=== PATIENT | female | born 1965 | race Caucasian/White ===

== ENCOUNTER 2020-10-18 09:25 | Outpatient (CLI) | payer OTHER, SELFPAY ==
--- NOTE | 2020-10-18 09:58 | CT_ITS ---
WS: [id number] CT ABDOMEN AND PELVIS NONCONTRAST HISTORY: LEFT LOWER QUADRANT PAIN TECHNIQUE: Imaging performed through the abdomen and pelvis. Coronal and sagittal reformats are submi tted. All CT scans at [facility] use at least one of these dose optimization techniques: automated exposure control; mA and/or kV adjustment per patient size (includes targeted exams where d ose is matched to clinical indication); or iterative reconstruction. DLP: 1051.12 mGycm COMPARISON: 02/19/2018 Lower thorax: Lung bases are clear. Visualized heart is normal. No hiatal hernia. Liver: Normal size liver. No mass or bile duct dilatation. Gallbladder: Normal gallbladder. Pancreas: Normal size and attenuation. Normal pancreatic duct. No pancreatitis or mass. Spleen: Normal. Adrenal glands: Normal. No mass. Right kidney: Normal size kidney with no mass or hydronephrosis. Left kidney: Normal size kidney with no mass or hydronephrosis. Aorta: Mild atherosclerosis abdominal aorta with no aneurysm. No free fluid, intraperitoneal air or significant lymphadenopathy. GI tract: Normal appendix. No GI tract obstruction. No mucosal thickening or pericolonic edema. No di verticular disease. There is a very featureless appearance of the descending and sigmoid colon. Lack of the normal haustral folds. The lumen appears slightly narrowed. Rectum is normal. Abdominal wall: Negative. No hernia. Pelvis: Normal. Osseous structures: L5 anterolisthesis by 4 mm. Facet joint arthritis at L4-5 and L5-S1. Marked scler osis involving the RIGHT ilium and SI joint. There is very mild widening of the RIGHT facet joint. CT/CT abdomen pelvis wo con [id number] IMPRESSION: 1. Featureless appearance of the descending and sigmoid colon. These findings can be noted with inflammatory bowel disease such as ulcerative colitis. 2. Additional RIGHT sacroiliitis. Sacroiliitis can also be seen with inflammat ory bowel disease such as Crohn's disease or ulcerative colitis. 3. Mild atherosclerosis aorta.
[2020-10-18] MEDS: iohexol 300 mg/mL 50 mL Btl PO (10:33)
== END 2020-10-18 09:26 | disposition home or self-care (01) ==
LOC: RADWPI 09:28
PROVIDERS: PCP Nurse Practitioner Family; Visit Provider Nurse Practitioner Family
DX: R10.32 Left lower quadrant pain (principal); I70.0 Atherosclerosis of aorta; M46.1 Sacroiliitis, not elsewhere classified
CPT/HCPCS: 74176; Q9967

== ENCOUNTER 2020-11-12 11:39 | Outpatient (CLI) | payer OTHER, SELFPAY ==
[2020-11-12 12:29] LABS: Basophils % 0.4 %; Eosinophils # 0.1 10^3/uL (0.0-0.8); Eosinophils % 1.6 %; Hematocrit 38.5 % (37.0-47.0); Hemoglobin 12.5 g/dL (11.5-15.3); Lymphocytes # 2.7 10^3/uL (0.8-4.8); Lymphocytes % 30.1 %; Mean Corpuscular HGB Conc 32.5 g/dL (30.0-36.0); Mean Corpuscular Hemoglobin 30.5 pg (28.0-34.0); Mean Corpuscular Volume 93.9 fL (81-99); Mean Platelet Volume 9.5 fL (7.4-10.4); Monocytes # 0.7 10^3/uL (0.2-0.9); Monocytes % 7.6 %; Neutrophils # 5.31 10^3/uL (1.8-7.7); Neutrophils % 59.9 %; Nucleated Red Blood Cells % 0 %; Platelet Count 326 10^3/cmm (130-400); Red Cell Distribution Width 13.1 % (12.1-15.1); White Blood Count 8.9 10^3/uL (4.0-10.0)
[2020-11-12 12:56] LABS: Alanine Aminotransferase 8 U/L (0-33); Alkaline Phosphatase 79 IU/L (35-105); Anion Gap 13.6 (5-19); Aspartate Amino Transferase 11 U/L (0-32); Blood Urea Nitrogen 12 mg/dL (6-20); C Reactive Protein 8.7 mg/L (0.0-4.9); Calcium 9.1 mg/dL (8.5-10.5); Carbon Dioxide 27 mmol/L (22-29); Chloride 104 mmol/L (98-107); Glomerular Filtration Rate 103.8 mL/min (90-130); Glucose 107 mg/dL (65-115); Osmolality Calculated 292 mOsm/kg (285-295); Potassium 3.6 mmol/L (3.5-5.1); Sodium 141 mmol/L (136-145); Thyroid Stimulating Hormone 2.43 uIU/mL (0.27-4.20); Total Bilirubin 0.3 mg/dL (0.15-1.2)
[2020-11-12 13:15] LABS: Erythrocyte Sedimentation Rate 35 mm/hr (0-15)
== END 2020-11-12 11:40 | disposition home or self-care (01) ==
PROVIDERS: PCP Nurse Practitioner Family; Visit Provider Surgery
DX: K57.92 Diverticulitis of intestine, part unspecified, without perforation or abscess without bleeding (principal)
CPT/HCPCS: 36415; 80053; 84443; 85025; 85651; 86140

== ENCOUNTER → 2020-11-16 08:45 | Outpatient (BNVA) | payer OTHER, SELFPAY | PROVIDERS: PCP Nurse Practitioner Family; Visit Provider Surgery | DX: K52.9 Noninfective gastroenteritis and colitis, unspecified (principal) | CPT/HCPCS: 87635 ==

== ENCOUNTER 2020-11-21 06:20 | Day surgery (SDC) | payer OTHER, SELFPAY ==
[2020-11-20 13:27] VITALS: BMI 33.6
--- NOTE | 2020-11-21 06:31 | ANES.PREANE2 ---
Pre-Anesthetic Assessment Pre-Anesthetic Assessment: Height/Weight: Height 1.55 m Weight 80.739 kg Preop Diagnosis: Colitis Proposed Procedure: Operation Date: 11/21/20 07:45 Proposed Procedures p Colonoscopy 46140 k52.9(Not Applicable) - Avery Lora MD Familial anesthetic complications: none Was Beta Richelle taken within 24 hours: N/A Was Clonidine taken within 24 hours: N/A Last intake: > 8 hrs Social: Social History: No alcohol and No tobacco Exam: Pre-Anes Outpt Exam: alert, oriented x 3, clear to auscultation bilaterally and regular rate & rhythm Airway: Cervical ROM: WNL MP: 4 Dentition: False Metabolic: Metabolic: Thyroid Anesthetic Plan: ASA status: 2 Anesthesia: MAC Risk of > 500 ml blood loss (7ml/kg in children): No PFSH Anesthesia PFSH: Medical History Anxiety Diverticulitis Hx of colonic polyp benign Hypothyroid Surgical History H/O hernia repair umbilical/abdominal--- several repairs H/O prior ablation treatment (~2007) endometrial--- did not work History of hysterectomy (~2007) TVH,anterior repair performed at [facility] [place]-- Andres Peters Hx of appendectomy Hx of ectopic (~1988) required removal Hx of rotator cuff surgery (~12/2019) left Family History Mother Diabetes Hypertension Thyroid disease Father Diabetes Heart disease Stroke Grandfather Breast cancer Maternal Denies family history of Colon cancer Ovarian cancer Hypercholesteremia Bleeding disorder Uterine cancer Social History Additional social history: - Tobacco use: current everyday smoker-- smokes 10 cigarettes per day Alcohol use: Occasional/socially Drug use: Marijuana-- quit in 's Data Anesthesia Cardiac Studies: No Data to Display
[2020-11-21 06:47] VITALS: BP 137/98; PULSE 81; RESP 18; TEMP 36.9; O2SAT 96
[2020-11-21] MEDS: sodium chloride 0.9% 1,000 ML 30 ML IV (07:07)
--- NOTE | 2020-11-21 07:13 | W.PM.OPSUD ---
Surgery/Procedure H&P Update DATE OF PROCEDURE: November 21, 2020 DATE H&P PERFORMED: 11/01/20 H&P UPDATE INFORMATION: I have reviewed H&P completed within last 30 days, I have examined patient prior to procedure and No changes to prior documentation PREOP DIAGNOSIS: Colitis PRIMARY INDICATION FOR PROCEDURE: The same PLANNED PROCEDURE: Operation Date: 11/21/20 07:45 Proposed Procedures p Colonoscopy 83622 k52.9(Not Applicable) - Avery Lora MD
[2020-11-21 09:11] VITALS: BP 121/80; PULSE 74; TEMP 36.7; O2SAT 99
--- NOTE | 2020-11-21 09:15 | ANE.PACU2 ---
Inpatient post-anesthesia follow up: Airway intact: Yes Vital signs: Temperature 98.1 F Pulse Rate 74 Respiratory Rate 18 Blood Pressure 121/80 Pulse Oximetry 99 Oxygen Delivery Me thod Room Air Oxygen Flow Rate Fraction of Inspir ed Oxygen Hydration adequate: Yes Nausea and vomiting: No Pain level: 1 Mental status: Baseline
== END 2020-11-21 09:36 | disposition home or self-care (01) ==
PROVIDERS: PCP Nurse Practitioner Family; Visit Provider Surgery
PROC: 0DJD8ZZ Inspection of Lower Intestinal Tract, Via Natural or Artificial Opening Endoscopic (ICD-10-PCS; CPT 45378; principal; 2020-11-21 07:45)
DX: K52.9 Noninfective gastroenteritis and colitis, unspecified (principal); D12.8 Benign neoplasm of rectum; E03.9 Hypothyroidism, unspecified; F17.210 Nicotine dependence, cigarettes, uncomplicated
CPT/HCPCS: 45380; 88305; 96360; 96361; J2704; J7030

== ENCOUNTER 2020-11-28 10:37 | Outpatient (CLI) | payer OTHER, SELFPAY ==
--- NOTE | 2020-11-28 10:42 | MM_ITS ---
WS: [id number] BILATERAL SCREENING DIGITAL MAMMOGRAM WITH CAD HISTORY: SCREENING COMPARISON: 07/24/2016 07/16/2016 Bilateral CC and MLO views submitted. Computer aided detection analyzed. Breast composition: There are scattered areas of fibroglandular density. No suspicious masses, microc alcifications or architectural distortion. Benign calcifications in each breast. Stable bilateral kiersten ast nodules. MM/[place] [id number] IMPRESSION: BI-RADS: 2-Benign FOLLOW UP: 1 Year Follow-up
== END 2020-11-28 10:38 | disposition home or self-care (01) ==
LOC: RADSHAW 10:40
PROVIDERS: PCP Nurse Practitioner Family; Visit Provider Nurse Practitioner Family
DX: Z12.31 Encounter for screening mammogram for malignant neoplasm of breast (principal)
CPT/HCPCS: 77067

== ENCOUNTER 2021-08-12 13:27 | Outpatient (CLI) | payer OTHER, SELFPAY ==
--- NOTE | 2021-08-12 13:35 | MM_ITS ---
WS: [id number] LEFT DIGITAL MAMMOGRAPHY WITH CAD CLINICAL INFORMATION: NIPPLE DISCHARGE COMPARISON: November 28, 2020 TECHNIQUE: 5 views of the left breast were obtained. FINDINGS: Scattered fibroglandular densities of the left breast. Punctate and lucent centered calcifications. S pot compression views at the areola. No definite visualized parenchymal abnormalities about the areol a. Ultrasound is pending. ULTRASOUND BREAST LEFT TECHNIQUE: Ultrasound left breast focused area of concern. CLINICAL INFORMATION: NIPPLE DISCHARGE FINDINGS: Ultrasound left breast about the areola. No evidence of underlying suspicious cystic or solid lesions . Incidental ductal ectasia. No visualized intraductal lesion. Findings have a benign appearance. MM/[place] [id number] IMPRESSION: BI-RADS: 2-Benign FOLLOW UP: 1 Year Follow-up Recommend return to annual screening mammography.
== END 2021-08-12 13:28 | disposition home or self-care (01) ==
LOC: RADSHAW 13:33
PROVIDERS: PCP Nurse Practitioner Family; Visit Provider Nurse Practitioner
DX: N64.52 Nipple discharge (principal)
CPT/HCPCS: 76642; 77065

== ENCOUNTER 2022-10-07 08:31 | Outpatient (CLI) | payer OTHER, SELFPAY ==
--- NOTE | 2022-10-07 08:45 | MR_ITS ---
WS: [id number] MRI LUMBAR SPINE NONCONTRAST TECHNIQUE: Sagittal T1, T2 and STIR imaging. Axial T1 and T2 imaging. CLINICAL INFORMATION: M48.062 - Spinal stenosis, lumbar region with neurogenic ... COMPARISON: CT and MRI 2013 FINDINGS: Mild lumbar curve. No acute compression. Grade 1 anterolisthesis L5 on S1 appears unchanged since 201 4. Disc space narrowing worse L5-S1 appears slightly progressed. L1-L2: Mild facet arthropathy. Spinal canal and foramen are patent. L2-L3: Minimal annular bulging. Slight narrowing of the RIGHT subarticular recess. Mild facet arthrop athy. Spinal canal and foramen are patent. L3-L4: Mild annular bulging with slight narrowing of the LEFT subarticular recess. Mild facet arthrop athy. Spinal canal and foramen are patent. L4-L5: Mild annular bulging with moderate central canal stenosis. Moderate facet arthropathy with lig amentum flavum hypertrophy. Slight impingement traversing L5 nerve roots. Mild LEFT and no significan t RIGHT foraminal narrowing. L5-S1: Grade 1 anterolisthesis L5 on S1 appears unchanged. Mild disc bulging in combination with face t arthropathy ligamentum flavum hypertrophy results in severe central canal stenosis unchanged. Impin gement on traversing S1 nerve roots. Severe LEFT and mild RIGHT foraminal narrowing. Chronic appearing sclerosis RIGHT sacrum and sacroiliac joint partially visualized. Visualized pelvic bony structures: Normal. Paravertebral soft tissues: Normal. MR/MR lumbar spine wo con* [id number] IMPRESSION: 1. Grade 1 anterolisthesis L5 on S1 measuring 6 mm appears unchanged since 201 4. Disc space narrowing L5-S1 has progressed slightly. 2. Moderate to severe central canal stenosis L5-S1 appears unchanged. This is due to grade 1 anterolisthesis in combination with disc bulging and facet arthr opathy. 3. Moderate to severe LEFT L5-S1 foraminal stenosis appears progressed. 4. Moderate central canal stenosis L4-L5 impinges the traversing RIGHT greater than LEFT L5 nerve roots. This appears slightly progressed. 5. Moderate facet arthropathy L4-L5 and L5-S1. Small amount of edema in the L4 -L5 and L5-S1 pedicles and facets.
== END 2022-10-07 08:32 | disposition home or self-care (01) ==
PROVIDERS: PCP Nurse Practitioner Family; Visit Provider Anesthesiology Pain Medicine
DX: M48.062 Spinal stenosis, lumbar region with neurogenic claudication (principal); M47.816 Spondylosis without myelopathy or radiculopathy, lumbar region; M47.817 Spondylosis without myelopathy or radiculopathy, lumbosacral region; M48.07 Spinal stenosis, lumbosacral region
CPT/HCPCS: 72148

== ENCOUNTER → 2022-10-22 09:59 | Outpatient (BNVA) | payer MEDICARE, OTHER, SELFPAY | PROVIDERS: PCP Nurse Practitioner Family; Visit Provider Anesthesiology Pain Medicine | DX: M51.16 Intervertebral disc disorders with radiculopathy, lumbar region (principal); M47.816 Spondylosis without myelopathy or radiculopathy, lumbar region | CPT/HCPCS: 99215 ==

== ENCOUNTER → 2022-11-11 14:49 | Outpatient (BNVA) | payer MEDICARE, OTHER, SELFPAY | PROVIDERS: PCP Nurse Practitioner Family; Visit Provider Anesthesiology Pain Medicine | DX: M54.16 Radiculopathy, lumbar region (principal) | CPT/HCPCS: 64483; 64484; J1100; J3490 ==

== ENCOUNTER → 2022-11-27 09:31 | Outpatient (BNVA) | payer MEDICARE, OTHER, SELFPAY | PROVIDERS: PCP Nurse Practitioner Family; Visit Provider Anesthesiology Pain Medicine | DX: M51.16 Intervertebral disc disorders with radiculopathy, lumbar region (principal); M47.816 Spondylosis without myelopathy or radiculopathy, lumbar region | CPT/HCPCS: 99215 ==

== ENCOUNTER → 2022-12-10 13:15 | Outpatient (BNVA) | payer MEDICARE, OTHER, SELFPAY | PROVIDERS: PCP Nurse Practitioner Family; Visit Provider Anesthesiology Pain Medicine | DX: M47.816 Spondylosis without myelopathy or radiculopathy, lumbar region (principal) | CPT/HCPCS: 64493; 64494; 64495; J3490 ==

== ENCOUNTER → 2022-12-24 13:23 | Outpatient (BNVA) | payer MEDICARE, OTHER, SELFPAY | PROVIDERS: PCP Nurse Practitioner Family; Visit Provider Anesthesiology Pain Medicine | DX: M47.816 Spondylosis without myelopathy or radiculopathy, lumbar region (principal) | CPT/HCPCS: 64493; 64494; 64495; J3490 ==

== ENCOUNTER → 2023-01-14 09:15 | Outpatient (BNVA) | payer MEDICARE, OTHER, SELFPAY | PROVIDERS: PCP Nurse Practitioner Family; Visit Provider Anesthesiology Pain Medicine | DX: M51.16 Intervertebral disc disorders with radiculopathy, lumbar region (principal); M47.816 Spondylosis without myelopathy or radiculopathy, lumbar region | CPT/HCPCS: 99214 ==

== ENCOUNTER 2023-01-21 08:59 | Outpatient (CLI) | payer MEDICARE, OTHER, SELFPAY ==
--- NOTE | 2023-01-21 09:10 | FL_ITS ---
WS: [id number] Exam: FL upper GI series [id number] Date/Time of Exam: 01/21/2023 9:18 AM Reason For Exam: ESOPHAGEAL DYSPHAGIA Swallowing function was normal. The esophagus is smooth in contour with normal motility. No hiatal he rnia noted. The stomach is freely distensible without evidence of mass or ulceration. Prominent gastr ic mucosa suggesting mild gastritis. The duodenal bulb is smooth in contour. No sign of duodenal ulce r. Barium spills freely into the duodenal C-loop. FL/FL upper GI series [id number] IMPRESSION: 1. Prominent gastric mucosa suggesting gastritis. 2. No indication of the gastric or duodenal ulcer.
== END 2023-01-21 09:00 | disposition home or self-care (01) ==
LOC: RAD 09:03
PROVIDERS: PCP Nurse Practitioner Family; Visit Provider Electrodiagnostic Medicine
DX: R13.19 Other dysphagia (principal)
CPT/HCPCS: 74240

== ENCOUNTER → 2023-08-25 09:30 | Outpatient (BNVA) | payer MEDICARE, OTHER, SELFPAY | PROVIDERS: PCP Nurse Practitioner Family; Referring Provider Nurse Practitioner Family; Visit Provider Internal Medicine Cardiovascular Disease | DX: R00.2 Palpitations (principal) | CPT/HCPCS: 93225 ==

== ENCOUNTER → 2023-09-10 12:34 | Outpatient (BNVA) | payer MEDICARE, OTHER, SELFPAY | PROVIDERS: PCP Nurse Practitioner Family; Referring Provider Nurse Practitioner Family; Visit Provider Internal Medicine | DX: R07.9 Chest pain, unspecified (principal); R00.1 Bradycardia, unspecified; R00.2 Palpitations; R06.09 Other forms of dyspnea; Z87.891 Personal history of nicotine dependence | CPT/HCPCS: 93005; 99204 ==

== ENCOUNTER 2023-09-18 06:48 | Outpatient (CLI) | payer MEDICARE, OTHER, SELFPAY ==
--- NOTE | 2023-09-18 07:15 | USCV_ITS ---
Stephani Bonilla Age: 58 Gender: F : 1965 Exam Date: 09/18/2023 07:07 Ordering Phys: Saran Andrade M.D ([email or web address]) Technologist: ANA [place] [facility] [place]ication: CHEST PAIN AND SHORTNESS OF BREATH BP: 124 / 74 HR: 63 Rhythm: Sinus Technical Quality: Adequate MEASUREMENTS (Male / Female) Normal Values 2D ECHO LVOT Diameter 2.0 cm LV Ejection Fraction MOD 2C 58.2 % LV Ejection Fraction 2C AL 59.4 % LA Diameter 3.2 cm LA Width 3.1 cm LA Height 4.3 cm RA Width 3.4 cm RA Height 4.7 cm Aorta at Sinotubular Diameter 2.5 cm IVC Diameter 1.6 cm M-MODE Aortic Annulus Diameter 3.1 cm LA Ao Ratio MM 1.0 MV E Point Septal Separation 0.4 cm DOPPLER AV Peak Velocity 126.0 cm/s LVOT Peak Velocity 96.0 cm/s AV Area Cont Eq vti 2.6 cm squared AV Area Cont Eq pk 2.4 cm squared MV Peak Velocity 99.0 cm/s MV Area PHT 3.9 cm squared Mitral E to A Ratio 0.8 MV E' Velocity 41.5 cm/s Mitral E to MV E' Ratio 7.7 Mitral E to LV E' Lateral Ratio 7.7 Mitral E to LV E' Septal Ratio 7.7 TR Peak Velocity 154.4 cm/s TR Peak Gradient 9.5 mmHg TR Mean Velocity 131.8 cm/s TR Mean Gradient 7.2 mmHg TR Velocity Time Integral 53.8 cm TV Peak E Velocity 63.0 cm/s Right Atrial Pressure 3.0 mmHg Pulmonary Artery Systolic Pressu 12.5 mmHg PV Peak Velocity 80.0 cm/s RV Acceleration Time 0.1 s RV Ejection Time 0.3 s RV AcT/ET 0.4 FINDINGS Left Ventricle Left ventricle is normal in size. LV systolic function is normal with EF of 55 to 60%. No regional wall motion abnormalities are seen. Grade 1 diastolic dysfunction Right Ventricle Normal in size and function Right Atrium Normal in size Left Atrium Normal in size Mitral Valve Structurally normal mitral valve. Mild mitral regurgitation Aortic Valve Structurally normal aortic valve. No significant stenosis or regurgitation Tricuspid Valve Mild tricuspid regurgitation. Insufficient TR jet to calculate RVSP. Pulmonic Valve Not well visualized Pericardium Normal Aorta Normal in size IVC Appears to be normal CONCLUSIONS LV systolic function is normal with EF of 55 to 60%. Grade 1 diastolic dysfunction Mild mitral regurgitation Mild tricuspid regurgitation No comparison studies are available Saran Andrade MD (Electronically Signed) Final Date: 25 September 2023 15:52 S
== END 2023-09-18 06:49 | disposition home or self-care (01) ==
LOC: RAD 06:48
PROVIDERS: PCP Nurse Practitioner Family; Visit Provider Internal Medicine
DX: R06.09 Other forms of dyspnea (principal); R07.9 Chest pain, unspecified; I08.1 Rheumatic disorders of both mitral and tricuspid valves
CPT/HCPCS: 93306

== ENCOUNTER 2023-10-16 07:28 | Outpatient (CLI) | payer MEDICARE, OTHER, SELFPAY ==
[2023-10-16 07:57] VITALS: BMI 33.4
--- NOTE | 2023-10-16 08:01 | ECG_ITS ---
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 Interpretive Statements NAME OF STUDY: EXERCISE SESTAMIBI STRESS TEST INDICATION: [Chest Pain, Shortness of breath] EXERCISE DATA: The patient was exercised by Gabino protocol. Baseline heart rate was 85 beats per minute. Baseline blood pressure was 111/75 millimeters of mercury. Maximal predicted heart rate was 162 beats per minute. Maximum heart rate achieved was 147 which was 90% of the maximum predicted heart rate. Maximum blood pressure was 186/69 millimeters of mercury. Total exercise time was 6 minutes. Maximum METs achieved was 7.0%. The reason for ending the test was completion of protocol. The patient complained of shortness of breath during the stress test, which then resolved at the end of the test. ELECTROCARDIOGRAM: BASELINE: Showed sinus rhythm, normal axis, no significant ST-T changes at the baseline noted. [] EXERCISE: At the peak exercise level, [] No significant ST-T changes suggestive of ischemia noted. [] RECOVERY: During the recovery period, heart rate dropped appropriately. No significant ST-T changes in the recovery suggestive of ischemia noted. [] CONCLUSION: 1. Exercise capacity is fair. 2. Heart rate response was appropriate. 3. Blood pressure response was appropriate. 4. Symptoms not suggestive of ischemia. 5. Electrocardiogram portion of the stress test was not suggestive of ischemia. 6. Nuclear scan will be documented separately. Electronically Signed On 10-16-2023 12:33:08 RAISIN SEPARATOR OPERATOR by Saran Andrade M.D. [id number]
--- NOTE | 2023-10-16 08:01 | NMCV_ITS ---
NM loan perf SPECT r/s* [id number] Stephani Bnoilla Age: 58 Gender: F : 1965 Exam Date: 10/16/2023 08:31 Ordering Phys: Saran Andrade M.D ([email or web address]) Technologist: DREW Mckenzie Exam Location: [facility] Indications: SHORTNESS OF BREATH STRESS TEST Please see separate stress test report in [facility] for full findings IMAGE PROTOCOL Rest/Stress 1 Exercise Day Radiopharmaceutical Dose (mCi) Administration Site Administered by Rest: Tc-99m 10.7 IV DREW Mckenzie Sestamibi Stress:Tc-99m 32.7 IV DREW Jay Sestamibi Rest: 16-Oct-2023 60 Discovery 630 Stress: 16-Oct-2023 30 Discovery 630 Radiopharmaceutical was injected at 85 % maximum heart rate. Images obtained in supine and prone position. SPECT RESULTS Technical Quality: Excellent Raw Data Analysis: Normal Image Corrections: No attenuation or motion correction applied Summed Stress Score: 0 Summed Rest Score: 0 Summed Difference Score: 0 PERFUSION FINDINGS SPECT images demonstrate homogeneous tracer distribution throughout the myocardium. FUNCTIONAL RESULTS (calculated via Gated SPECT) Stress Image LV EF (%): 68 Stress EDV (mL):74 TID: 0.88 Stress ESV (mL):24 FUNCTIONAL FINDINGS: There is normal left ventricular systolic function. IMPRESSIONS 1. Normal myocardial perfusion imaging with no evidence of ischemia 2. LV systolic function is normal Saran Andrade MD (Electronically Signed) Final Date: 16 October 2023 13:04 S
[2023-10-16 09:36] VITALS: BP 111/75; PULSE 72
== END 2023-10-16 07:29 | disposition home or self-care (01) ==
LOC: CDL 07:28
PROVIDERS: PCP Nurse Practitioner Family; Visit Provider Internal Medicine
DX: R07.9 Chest pain, unspecified (principal); R06.02 Shortness of breath
CPT/HCPCS: 36415; 78452; 93017; A9500

== ENCOUNTER → 2024-01-19 15:39 | Outpatient (BNVA) | payer MEDICARE, OTHER, MEDICAID, SELFPAY | PROVIDERS: PCP Nurse Practitioner Family; Visit Provider Internal Medicine | DX: R00.2 Palpitations (principal); R07.9 Chest pain, unspecified; R06.09 Other forms of dyspnea; Z87.891 Personal history of nicotine dependence | CPT/HCPCS: 99214 ==

== ENCOUNTER 2024-02-15 12:43 | Emergency (ER) | payer OTHER, MEDICARE, MEDICAID, SELFPAY ==
--- NOTE | 2024-02-15 12:44 | XR_ITS ---
WS: [id number] Exam: XR knee LT 3V* [id number] Date/Time of Exam: 02/15/2024 12:44 PM Reason For Exam: pain No fracture or dislocation. The joint compartments are preserved. Joint effusion in the suprapatellar bursa. Soft tissues are otherwise unremarkable. XR/XR knee LT 3V* [id number] IMPRESSION: 1. Joint effusion in the suprapatellar bursa. 2. The remaining aspects of the LEFT knee are negative.
[2024-02-15 12:55] VITALS: BP 128/72; PULSE 73; TEMP 36.8; O2SAT 98; BMI 32.5
--- NOTE | 2024-02-15 13:05 | ED_ITS ---
HPI - Extremity Problem General: Chief complaint: Extremity Injury, Lower Stated complaint: left knee pain Time Seen by Provider: 02/15/24 12:47 Source: patient Mode of arrival: ambulatory Limitations: no limitations History of Present Illness: 58-year-old female who states that she h ad stepped off a step and felt a pop in her left knee states she been having severe left knee pain since then states painful to movement or trying to ambulate. Denies any history of any knee issues states it is improved with rest denies any hip or ankle pain Associated symptoms: Deny chest pain, fever(s) or rash Review of Systems Const: Denies: fever(s), chills, body aches or change in appetite ENMT: Denies: throat pain or dental pain Card: Denies: chest pain Resp: Denies: dyspnea GI: Denies: abdominal pain, nausea, vomiting or diarrhea Musc: Reports: extremity pain; Denies: neck pain or back pain Skin/Breast: Denies: rash Neuro: Denies: headache(s) PFSH ED PFSH: Medical History Diverticulitis Hypothyroid Anxiety Hx of colonic polyp benign Surgical History H/O prior ablation treatment (~2007) endometrial--- did not work H/O hernia repair umbilical/abdominal--- several repairs Hx of ectopic (~1988) required removal History of hysterectomy (~2007) TVH,anterior repair performed at [facility] [place]-- Andres Peters Hx of appendectomy Hx of rotator cuff surgery (~12/2019) left Family History Mother Diabetes Hypertension Thyroid disease Father Diabetes Heart disease Stroke Grandfather Breast cancer Maternal Denies family history of Colon cancer Ovarian cancer Hypercholesteremia Bleeding disorder Uterine cancer Social History Smoking and tobacco/nicotine status: former use of tobacco/nicotine Alcohol intake: never Substance/Drug Use: never Additional social history: - Tobacco use: current everyday smoker-- smokes 10 cigarettes per day Alcohol use: Occasional/socially Drug use: Marijuana-- quit in 20's Physical Exam Const: COMMON NORMALS: no acute distress, patient oriented x3 and healthy appearing HENMT: COMMON NORMALS: normocephalic and atraumatic HEAD & SCALP: normocephalic and atraumatic Neck/C-Spine: COMMON NORMALS: full ROM and supple Chest: COMMONS NORMALS: normal inspection of the chest Resp: COMMON NORMALS: normal respiratory effort Extremity: COMMON NORMALS: normal to inspection NARRATIVE EXTREMITY EXAM: Presents with pain with range of motion and tenderness to left knee no obvious deformity no swelling no warmth to touch distal pulses sensation intact Neuro: COMMON NORMALS: patient oriented x3, moves all extremities and no focal motor deficits Psych: COMMON NORMALS: mental status grossly normal, Normal thought process present and cooperative THOUGHT PROCESS: Normal thought process present Skin: COMMON NORMALS: no rashes or lesions noted and no wounds GENERAL SKIN EXAM: no rashes or lesions noted Course Vital Signs: Vital signs: Vital Signs Temperature 98.2 F 02/15/24 12:55 Pulse Rate 73 02/15/24 12:55 Blood Pressure 128/72 02/15/24 12:55 Pulse Oximetry 98 02/15/24 12:55 Oxygen Delivery Me thod Room Air 02/15/24 12:55 MDM - Extremity (Nontraumatic) Medical Decision Making Patient presents here with left knee pain likely sprain x-ray shows no fracture she is weight-bear as tolerated did give her crutches she is follow-up with orthopedics she is to return if worsening she understands agrees to plan XR interpretation done by ED provider, pending radiology final review ED provider radiology interpretation(s): xr L knee: no acute abnormality Discharge Plan Discharge Patient Disposition: Home Clinical Impression: Left knee sprain Qualifiers: Encounter type: initial encounter Involved ligament of knee: unspecified ligament Qualified Code(s): S83.92XA - Sprain of unspecified site of left knee, initial encounter Condition: Stable Prescriptions: No Action levothyroxine 75 mcg capsule 100 mcg PO DAILY hydrocortisone 2.5 % cream 1 applic topical BID Qty: 28 0RF Rx Instructions: Perianal application. hydrocodone-acetaminophen 5-325 mg tablet 1 tab PO TID PRN (Reason: pain) 7 Days Qty: 21 0RF omeprazole 40 mg capsule,delayed release(DR/EC) 40 mg PO DAILY metoprolol tartrate 25 mg tablet 12.5 mg PO BID Qty: 90 3RF Discharge Orders: Discharge ED (Routine); Ordered 02/15/24 Ordered By: Aidan Robles Referrals: Aretha Araiza FNP [Primary Care Provider] - Evelia Kelly MD [Physician] - 1-3 days Discharge Diet: Advance as tolerated Discharge Activity: Resume usual activity Patient Instructions: Knee Sprain (ED) Coding Level of Care Code ED Professor Of Marketing for Bee Kennedy
[2024-02-15] MEDS: naproxen 500 mg Tablet PO (13:48)
[2024-02-15 13:49] VITALS: BP 124/71; PULSE 71; RESP 16; TEMP 36.8; O2SAT 99
--- NOTE | 2024-02-15 17:38 | DCPLANNER ---
messaged ortho for er f/u
== END 2024-02-15 13:50 | disposition home or self-care (01) ==
PROVIDERS: Emergency Provider Emergency Medicine; PCP Nurse Practitioner Family
DX: S83.92XA Sprain of unspecified site of left knee, initial encounter (principal); Z87.891 Personal history of nicotine dependence; X50.9XXA Other and unspecified overexertion or strenuous movements or postures, initial encounter
CPT/HCPCS: 73562; 99283; E0114

== ENCOUNTER → 2024-02-16 13:15 | Outpatient (BNVA) | payer MEDICARE, MEDICAID, SELFPAY | PROVIDERS: PCP Nurse Practitioner Family; Referring Provider Emergency Medicine; Visit Provider Specialist | DX: S83.92XA Sprain of unspecified site of left knee, initial encounter (principal); X50.9XXA Other and unspecified overexertion or strenuous movements or postures, initial encounter; Z46.89 Encounter for fitting and adjustment of other specified devices; S83.92XD Sprain of unspecified site of left knee, subsequent encounter; X58.XXXD Exposure to other specified factors, subsequent encounter | CPT/HCPCS: 73560; 73565 ==

== ENCOUNTER 2024-02-16 15:37 | Outpatient (CLI) | payer MEDICARE, MEDICAID, SELFPAY | END 2024-02-16 15:38 | disposition home or self-care (01) | LOC: SPT 15:38 | PROVIDERS: PCP Nurse Practitioner Family; Visit Provider Specialist | DX: Z46.89 Encounter for fitting and adjustment of other specified devices (principal); S83.92XD Sprain of unspecified site of left knee, subsequent encounter; X58.XXXD Exposure to other specified factors, subsequent encounter | CPT/HCPCS: 97760; 99204; L1812 ==

== ENCOUNTER 2024-03-16 21:47 | Emergency (ER) | payer MEDICARE, SELFPAY ==
[2024-03-16 21:56] VITALS: BP 133/80; PULSE 81; RESP 14; TEMP 36.7; O2SAT 98
--- NOTE | 2024-03-16 22:48 | CTR_ITS ---
PROCEDURE INFORMATION: Exam: CT Abdomen And Pelvis With Contrast Exam date and time: 03/16/2024 11:23 PM Age: 58 years old Clinical indication: Abdominal pain; Localized; Left upper quadrant (luq); Prior surgery; Surgery date: 6+ months; Surgery type: Appy, hyster, hernia x 5; Additional info: Luq pain TECHNIQUE: Imaging protocol: Computed tomography of the abdomen and pelvis with contrast. Radiation optimization: All CT scans at this facility use at least one of these dose optimization techniques: automated exposure control; mA and/or kV adjustment per patient size (includes targeted exams where dose is matched to clinical indication); or iterative reconstruction. Contrast material: OMNIPAQUE 350; Contrast volume: 100 ml; Contrast route: INTRAVENOUS (IV); COMPARISON: CT abdomen pelvis wo con [id number] 10/18/2020 11:19 AM RADIATION DOSE METRICS: Total DLP (mGy-cm): 773.06 FINDINGS: Liver: Normal. No mass. Gallbladder and biliary ducts: Normal. No calcified stones. No ductal dilation. Pancreas: Normal. No ductal dilation. Spleen: Normal. No splenomegaly. Adrenal glands: Normal. No mass. Kidneys and ureters: Normal. No hydronephrosis. Stomach and bowel: Unremarkable. No obstruction. No mucosal thickening. Appendix: Status post appendectomy. Intraperitoneal space: Unremarkable. No free air. No significant fluid collection. Vasculature: Moderate atherosclerotic calcifications. Lymph nodes: Unremarkable. No enlarged lymph nodes. Urinary bladder: Unremarkable as visualized. Reproductive: Status post hysterectomy. Bones/joints: 2 mm anterolisthesis of L5 on S1. Soft tissues: Unremarkable. CT/CT abdomen pelvis w con* [id number] IMPRESSION: No acute findings within the abdomen or pelvis.
[2024-03-16 23:02] VITALS: RESP 18
[2024-03-16] MEDS: morphine 4 mg/mL SDV 1 mL IVP (23:02)
[2024-03-16] MEDS: ondansetron 2 mg/ML SDV 2 mL 4 MG IVP (23:02)
[2024-03-16] MEDS: sodium chloride 0.9% 1,000 ML 999 ML IV (23:02)
[2024-03-16 23:07] LABS: Basophils % 0.3 %; Eosinophils # 0.5 10^3/uL (0.0-0.8); Eosinophils % 4.4 %; Hematocrit 36.2 % (36-47); Lymphocytes # 4.1 10^3/uL (0.8-4.8); Lymphocytes % 35.4 %; Mean Corpuscular HGB Conc 32.9 g/dL (30-55); Mean Corpuscular Hemoglobin 31.5 pg (27-33); Mean Corpuscular Volume 95.8 fl (85-98); Mean Platelet Volume 9.2 fL (7.4-10.4); Monocytes # 0.8 10^3/uL (0.2-0.9); Monocytes % 7.1 %; Neutrophils # 6.07 10^3/uL (1.8-7.7); Neutrophils % 52.4 %; Nucleated Red Blood Cells % 0 %; Platelet Count 262 10^3/cmm (157-399); Red Blood Count 3.78 10^6/uL (3.85-5.65); Red Cell Distribution Width 13.5 % (12.1-15.1); White Blood Count 11.61 10^3/uL (3.29-11.43)
[2024-03-16 23:15] LABS: Bilirubin Urine Neg (Negative); Blood Urine 3+ (Negative); Glucose Urine UA Norm (Normal); Ketones Urine Negative (Negative); Leukocyte Esterase Urine Negative (Negative); Nitrate Urine Negative (Negative); Protein Urine Neg (Negative); Urine Appearance Slightly Cloudy (CLEAR); Urine Color Yellow (Yellow); Urobilinogen Urine Neg (Negative); pH Urine 6 (5-7)
[2024-03-16 23:16] LABS: Add Urine Culture? No; Add Urine Microscopic? YES; Bacteria Urine TRACE /hpf; Squamous Epithelial Cell Urine 25-40 /hpf (0-5); WBC Urine 0-4 /hpf (0-5)
[2024-03-16] MEDS: iohexol 350 mg/mL 500 mL Btl (per mL) IV (23:28)
[2024-03-16 23:29] LABS: Alanine Aminotransferase 8 U/L (0-33); Alkaline Phosphatase 74 U/L (35-105); Aspartate Amino Transferase 11 U/L (0-32); Blood Urea Nitrogen 18 mg/dL (6-20); Carbon Dioxide 27 mmol/L (22-29); Chloride 105 mmol/L (98-107); Creatinine Clr Calc Pharmacy 82.8202; Globulin 2.9 g/dL (1.3-4.6); Glomerular Filtration Rate 85.9 mL/min (90-130); Glucose 103 mg/dL (65-115); Lipase 40 U/L (13-60); Osmolality Calculated 298 mOsm/kg (285-295); Sodium 143 mmol/L (136-145); Total Bilirubin 0.2 mg/dL (0.15-1.2); Total Protein 6.9 g/dL (6.6-8.7)
[2024-03-16 23:58] VITALS: BP 108/71; PULSE 67; O2SAT 95
[2024-03-17] MEDS: dexamethasone 4 mg/mL INJ 8 MG IVP (00:14)
[2024-03-17 00:21] VITALS: BP 108/71; PULSE 69; O2SAT 98
--- NOTE | 2024-03-17 00:43 | W.ED.ABDPA2 ---
HPI - Abdominal Pain General: Chief Complaint: Abdominal Pain Stated Complaint: sharp pain left abd under breast radiate to back Time Seen by Provider: 03/16/24 22:08 Source: patient Mode of arrival: ambulatory Limitations: no limitations History of Present Illness: Patient is a 58-year-old female presents to the emergency department complaining of left-sided abdominal pain onset 4 days. Patient states she was doing nothing at onset. No history of previous. Still has her gallbladder, history of appendectomy. Patient states her pain is worsened with palpation, and has been associated with nausea and a decreased appetite. She denies any fever, vomiting, diarrhea, constipation, urinary symptoms, or other pertinent medical history or symptoms at this time. She has not been taking anything for her symptoms. She denies any recent trauma or excessive overuse. Pain is stated to radiate into her back, states that it goes away with rest. MD elicited complaint: abdominal pain Pertinent past history: none Onset (ago): day(s) Pain Consistency: constant Location: LUQ Severity: moderate Radiation: back Exacerbating factors: other (Palpation) Relieving factors: rest Associated Symptoms: Reports nausea; Denies bloating, change in stool character, chills, constipation, diarrhea, dysuria, fever(s), hematochezia and vomiting Review of Systems General: Reports: 10 or more systems reviewed and unremarkable except in HPI and below Const: Reports: change in appetite; Denies: fever(s), chills, change in weight or diaphoresis ENMT: Denies: throat pain or hoarseness Card: Denies: chest pain, palpitations or lightheadedness Resp: Denies: dyspnea, productive cough or wheezing GI: Reports: abdominal pain and nausea; Denies: vomiting, diarrhea, constipation, bloating, change in stool character or hematochezia : Denies: flank pain, difficulty voiding, dysuria, urinary frequency or urinary urgency Musc: Denies: neck pain or back pain Skin/Breast: Denies: rash or new lesions Neuro: Denies: headache(s) or dizziness PFSH ED PFSH: Medical History Diverticulitis Hypothyroid Anxiety Hx of colonic polyp benign Surgical History H/O prior ablation treatment (~2007) endometrial--- did not work H/O hernia repair umbilical/abdominal--- several repairs Hx of ectopic (~1988) required removal History of hysterectomy (~2007) TVH,anterior repair performed at [facility] [place]-- Andres Peters Hx of appendectomy Hx of rotator cuff surgery (~12/2019) left Family History Mother Diabetes Hypertension Thyroid disease Father Diabetes Heart disease Stroke Grandfather Breast cancer Maternal Denies family history of Colon cancer Ovarian cancer Hypercholesteremia Bleeding disorder Uterine cancer Social History Smoking and tobacco/nicotine status: unknown if used tobacco/nicotine Alcohol intake: never Substance/Drug Use: never Additional social history: - Tobacco use: current everyday smoker-- smokes 10 cigarettes per day Alcohol use: Occasional/socially Drug use: Marijuana-- quit in 20's Physical Exam Const: COMMON NORMALS: no acute distress, average body habitus, patient oriented x3, no limitations, healthy appearing, alert and well nourished GENERAL APPEARANCE: cooperative and comfortable ORIENTATION/CONSCIOUSNESS: Yes awake HENMT: COMMON NORMALS: normocephalic, atraumatic, hearing grossly normal bilaterally, external ears normal, Normal external nose present, Normal nasal mucous membranes and turbinates present and moist oral mucous membranes HEAD & SCALP: normocephalic and atraumatic NOSE: Normal external nose present and Normal nasal mucous membranes and turbinates present EXTERNAL EAR: Yes external ears normal Eye: COMMON NORMALS: Equal, round and reactive pupils present, EOMs intact bilaterally, conjunctivae normal and normal visual mehta by confrontation CONJUNCTIVA: Yes conjunctivae normal PUPIL: Yes Equal, round and reactive pupils present Neck/C-Spine: COMMON NORMALS: full ROM, supple, no meningeal signs and no JVD Resp: COMMON NORMALS: normal respiratory effort, No retractions, No use of accessory muscles and clear to auscultation bilaterally AUSCULTATION: clear to auscultation bilaterally, no crackles, no rales, no rhonchi and no wheezes Cardio: COMMON NORMALS: no JVD, regular rate, regular rhythm, S1 normal heart sound present, S2 normal heart sound present, No gallops present (Cardio), No clicks present (Cardio), No murmurs present (Cardio), No rub (Cardio) and Peripheral pulses 2+ throughout RATE: regular rate RHYTHM: regular rhythm HEART SOUNDS: S1 normal heart sound present and S2 normal heart sound present PERIPHERAL PULSES: Peripheral pulses 2+ throughout GI: COMMON NORMALS: Normal to inspection, nondistended, normoactive bowel sounds present, Soft to palpation, No hepatosplenomegaly present and no masses AUSCULTATION: Yes normoactive bowel sounds PALPATION: Yes Soft to palpation, No Guarding due to palpation present (GI), No Rigid due to palpation and Yes No hepatosplenomegaly present RECTAL EXAM: deferred OTHER: There is reproducible tenderness to palpation on the left lateral abdominal wall, over the inferior rib cage : COMMON NORMALS: Yes no CVA tenderness BLADDER/KIDNEY EXAM: Yes no CVA tenderness Back/Pelvis: COMMON NORMALS: no CVA tenderness Extremity: COMMON NORMALS: normal to inspection and full ROM Neuro: COMMON NORMALS: patient oriented x3, moves all extremities, no focal motor deficits and no sensory deficits noted SENSORIUM/ORIENTATION: Yes alert MENINGEAL SIGNS: Yes no meningeal signs Psych: COMMON NORMALS: mental status grossly normal, cooperative and speech normal SPEECH: Yes normal speech Skin: COMMON NORMALS: no rashes or lesions noted GENERAL SKIN EXAM: no rashes or lesions noted Course Vital Signs: Vital signs: Vital Signs Temperature 98.1 F 03/16/24 21:56 Pulse Rate 69 03/17/24 00:21 Respiratory Rate 18 03/16/24 23:02 Blood Pressure 108/71 03/17/24 00:21 Pulse Oximetry 98 03/17/24 00:21 Oxygen Delivery Me thod Room Air 03/16/24 23:58 MDM - Abdominal Pain Medical Decision Making Patient presented for evaluation of left-sided abdominal pain, onset 4 days ago. Her vitals normal on arrival noted to be afebrile. Physical examination did reveal her to be tender to palpation, over the left lateral rib cage and this did seem to be more musculoskeletal on examination. However labs are still obtained and did not demonstrate any acute infectious process or abnormal findings on metabolic panel. In addition her urinalysis was negative. Imaging of the abdomen and pelvis with CT did not demonstrate any acute findings. Patient was given pain medication as well as fluids and nausea medication, and upon recheck states that she felt much better. I do feel at this time that her pain is likely a costochondritis due to the location of the pain and normality of her workup. I will give her dose of Decadron for inflammation, and send muscle relaxers as well as nausea medication to her pharmacy to help with her appetite. She is informed to return with any persistence of the pain or any new or concerning symptoms, and otherwise to follow-up with primary care for further evaluation. Lab Data 03/16/24 22:59 03/16/24 22:59 Labs/Radiology: Radiology Impressions Abdomen/Pelvis CT 03/16/24 22:48 IMPRESSION: No acute findings within the abdomen or pelvis. Laboratory Results WBC 11.61 10^3/uL (3.29-11.43) H 03/16/24 22:59 RBC 3.78 10^6/uL (3.85-5.65) L 03/16/24 22:59 Hgb 11.90 g/dL (11.27-16.99) 03/16/24 22:59 Hct 36.2 % (36-47) 03/16/24 22:59 MCV 95.8 fl (85-98) 03/16/24 22:59 MCH 31.5 pg (27-33) 03/16/24 22:59 MCHC 32.9 g/dL (30-55) 03/16/24 22:59 RDW 13.5 % (12.1-15.1) 03/16/24 22:59 Plt Count 262 10^3/cmm (157-399) 03/16/24 22:59 MPV 9.2 fL (7.4-10.4) 03/16/24 22:59 Neut % (Auto) 52.4 % 03/16/24 22:59 Lymph % (Auto) 35.4 % 03/16/24 22:59 [place] % (Auto) 7.1 % 03/16/24 22:59 Eos % (Auto) 4.4 % 03/16/24 22:59 Baso % (Auto) 0.3 % 03/16/24 22:59 Neut # (Auto) 6.07 10^3/uL (1.8-7.7) 03/16/24 22:59 Lymph # (Auto) 4.1 10^3/uL (0.8-4.8) 03/16/24 22:59 [place] # (Auto) 0.8 10^3/uL (0.2-0.9) 03/16/24 22:59 Eos # (Auto) 0.5 10^3/uL (0.0-0.8) 03/16/24 22:59 Baso # (Auto) 0.0 10^3/uL (0.0-0.1) 03/16/24 22:59 Nucleated RBC % (auto) 0 % 03/16/24 22:59 Nucleated RBCs # 0.0 /100WBC 03/16/24 22:59 Sodium 143 mmol/L (136-145) 03/16/24 22:59 Potassium 4.0 mmol/L (3.5-5.1) 03/16/24 22:59 Chloride 105 mmol/L (98-107) 03/16/24 22:59 Carbon Dioxide 27 mmol/L (22-29) 03/16/24 22:59 Anion Gap 15.0 (5-19) 03/16/24 22:59 BUN 18 mg/dL (6-20) 03/16/24 22:59 Creatinine 0.7 mg/dL (0.5-0.9) 03/16/24 22:59 GFR Calculation 85.9 mL/min (90-130) L 03/16/24 22:59 Glucose 103 mg/dL (65-115) 03/16/24 22:59 Calculated Osmolality 298 mOsm/kg (285-295) H 03/16/24 22:59 Calcium 9.0 mg/dL (8.5-10.5) 03/16/24 22:59 Total Bilirubin 0.2 mg/dL (0.15-1.2) 03/16/24 22:59 AST 11 U/L (0-32) 03/16/24 22:59 ALT 8 U/L (0-33) 03/16/24 22:59 Alkaline Phosphatase 74 U/L (35-105) 03/16/24 22:59 Total Protein 6.9 g/dL (6.6-8.7) 03/16/24 22:59 Albumin 4.0 g/dL (3.5-5.2) 03/16/24 22:59 Globulin 2.9 g/dL (1.3-4.6) 03/16/24 22:59 Lipase 40 U/L (13-60) 03/16/24 22:59 Urine Color Yellow (Yellow) 03/16/24 23:05 Urine Appearance Slightly cloudy (CLEAR) 03/16/24 23:05 Urine pH 6 (5-7) 03/16/24 23:05 Ur Specific [place] 1.010 (1.005-1.030) 03/16/24 23:05 Urine Protein Neg (Negative) 03/16/24 23:05 Urine Glucose (UA) Norm (Normal) 03/16/24 23:05 Urine Ketones Negative (Negative) 03/16/24 23:05 Urine Blood 3+ (Negative) H 03/16/24 23:05 Urine Nitrate Negative (Negative) 03/16/24 23:05 Urine Bilirubin Neg (Negative) 03/16/24 23:05 Urine Urobilinogen Neg mg/dL (Negative) 03/16/24 23:05 Ur Leukocyte Esterase Negative (Negative) 03/16/24 23:05 Urine RBC 5-10 /hpf (0-2) H 03/16/24 23:05 Urine WBC 0-4 /hpf (0-5) H 03/16/24 23:05 Ur Squamous Epith Cells 25-40 /hpf (0-5) H 03/16/24 23:05 Amorphous Sediment Not Reportable 03/16/24 23:05 Urine Bacteria Trace /hpf (NONE) 03/16/24 23:05 All radiology interpretation(s) finalized by discharge Discharge Plan Discharge Patient Disposition: Home Clinical Impression: Costochondritis Condition: Stable Prescriptions: New ondansetron HCl 4 mg tablet 4 mg PO Q8H Qty: 30 0RF methocarbamol 750 mg tablet 750 mg PO Q8H 5 Days Qty: 15 0RF No Action levothyroxine 75 mcg capsule 100 mcg PO DAILY hydrocortisone 2.5 % cream 1 applic topical BID Qty: 28 0RF Rx Instructions: Perianal application. hydrocodone-acetaminophen 5-325 mg tablet 1 tab PO TID PRN (Reason: pain) 7 Days Qty: 21 0RF omeprazole 40 mg capsule,delayed release(DR/EC) 40 mg PO DAILY metoprolol tartrate 25 mg tablet 12.5 mg PO BID Qty: 90 3RF (DME) Hinged Knee Brace, Left See Rx Instructions .Route .MEDSUPPLY Qty: 1 0RF Rx Instructions: As directed Discharge Orders: Discharge ED (Routine); Ordered 03/17/24 Ordered By: Rodolfo Anand Referrals: Aretha Araiza FNP [Primary Care Provider] - Discharge Diet: Usual diet Discharge Activity: Increase activity as tolerated Patient Instructions: Costochondritis (ED) Activity Restrictions/Additional Instructions: Take medications as prescribed. Avoid reinjury. Tylenol and ibuprofen for pain. Rest and ice to the area as needed. Follow-up with your primary care provider. Return if your pain continues to worsen or you develop any new or concerning symptoms. Coding Level of Care Code ED Robotics Application Engineer for Bee Kennedy
== END 2024-03-17 00:10 | disposition home or self-care (01) ==
PROVIDERS: Emergency Provider Physician Assistant; PCP Nurse Practitioner Family
DX: M94.0 Chondrocostal junction syndrome [Tietze] (principal)
CPT/HCPCS: 74177; 80053; 81001; 83690; 85025; 96361; 96374; 96375; 99285; J1100; J2270; J2405; J7030; Q9967

== ENCOUNTER 2024-03-30 11:41 | Outpatient (CLI) | payer MEDICARE, OTHER, SELFPAY ==
--- NOTE | 2024-03-30 11:46 | MM_ITS ---
WS: [id number] BILATERAL SCREENING DIGITAL TOMOSYNTHESIS MAMMOGRAM WITH CAD HISTORY: SCREENING COMPARISON: 08/12/2021, 11/28/2020, 08/12/2021 Bilateral CC and MLO views with tomosynthesis and synthetic mammography submitted. Computer aided det ection analyzed. Breast composition: There are scattered areas of fibroglandular density. No suspicious masses, microc alcifications or architectural distortion. Benign calcifications in each breast. MM/[place] [id number] IMPRESSION: BI-RADS: 2-Benign FOLLOW UP: 1 Year Follow-up
== END 2024-03-30 11:42 | disposition home or self-care (01) ==
LOC: RAD 11:42
PROVIDERS: PCP Nurse Practitioner Family; Visit Provider Nurse Practitioner Family
DX: Z12.31 Encounter for screening mammogram for malignant neoplasm of breast (principal)
CPT/HCPCS: 77063; 77067

== ENCOUNTER 2024-04-08 07:44 | Outpatient (CLI) | payer MEDICARE, OTHER, SELFPAY ==
--- NOTE | 2024-04-08 08:00 | MR_ITS ---
WS: [id number] MRI LEFT KNEE HISTORY: Pain after injury. COMPARISON: Radiograph 02/16/2024 Anterior cruciate ligament: Mild thickening of the ACL. There is also an ovoid cystic mass within the posterior fibers of the ACL measuring 7 x 2 mm. Majority of the fibers are intact. Posterior cruciate ligament: Intact. Medial collateral ligament: Intact. Posterior lateral corner structures: Intact. Medial menisci: Abnormal signal in the posterior horn at the meniscal root consistent with a tear. Th ere is abnormal signal extending to the superior and intra-articular surfaces. There is also slight b lunting of the free edge towards the meniscal root. Anterior horn intact. Lateral meniscus: Intact. Normal signal, size and shape. Extensor mechanism: Distal quadriceps tendon and patellar tendons are intact. Fluid and soft tissue: Very small suprapatellar joint effusion. Small Ulloa's cyst. Osseous and articular structures: Patellofemoral compartment: No marrow edema. Cartilage is well-preserved. Medial compartment: Mild narrowing of the medial compartment. Focal loss of cartilage over the medial most tibial plateau adjacent to the MCL. There is also marrow edema. There is a small amount of krupa ow edema in the adjacent femoral condyle. Lateral compartment: Negative. MR/MR knee LT wo con* [id number] IMPRESSION: 1. Focal acute marrow edema in the medial tibial plateau adjacent to the MCL w ith a small amount of adjacent edema in the femoral condyle. 2. There is a small cartilaginous defect in the medial most tibial plateau at the site of the marrow edema. 3. Complex tear meniscal root posterior medial horn. 4. Fluid collection in the posterior fibers of the mid ACL. There is no full-t hickness tear. This may be an intrasubstance tear with distended with fluid or ganglion cyst. Cystic collection measures 7 x 2 mm.
== END 2024-04-08 07:45 | disposition home or self-care (01) ==
LOC: RAD 07:45
PROVIDERS: PCP Nurse Practitioner Family; Visit Provider Specialist
DX: S83.242A Other tear of medial meniscus, current injury, left knee, initial encounter (principal); X58.XXXA Exposure to other specified factors, initial encounter; R93.6 Abnormal findings on diagnostic imaging of limbs
CPT/HCPCS: 73721

== ENCOUNTER → 2024-04-13 15:00 | Outpatient (BNVA) | payer MEDICARE, OTHER, SELFPAY | PROVIDERS: PCP Nurse Practitioner Family; Visit Provider Specialist | DX: S80.02XD Contusion of left knee, subsequent encounter (principal); X58.XXXD Exposure to other specified factors, subsequent encounter | CPT/HCPCS: 99214 ==

== ENCOUNTER → 2024-06-13 10:28 | Outpatient (BNVA) | payer MEDICARE, OTHER, SELFPAY | PROVIDERS: PCP Nurse Practitioner Family; Visit Provider Specialist | DX: M17.12 Unilateral primary osteoarthritis, left knee; S80.02XD Contusion of left knee, subsequent encounter; X58.XXXD Exposure to other specified factors, subsequent encounter | CPT/HCPCS: 20610; 73560; 73565; 99214 ==

== ENCOUNTER → 2024-09-16 10:48 | Outpatient (BNVA) | payer MEDICARE, OTHER, SELFPAY | PROVIDERS: PCP Nurse Practitioner Family; Visit Provider Specialist | DX: M17.12 Unilateral primary osteoarthritis, left knee (principal); Z71.89 Other specified counseling | CPT/HCPCS: 20610; J1100; J2795; J3301 ==

== ENCOUNTER 2024-10-25 08:46 | Emergency (ER) | payer MEDICARE, OTHER, SELFPAY ==
--- NOTE | 2024-10-25 08:52 | USCV_ITS ---
Stephani Bonilla Age: 59 Gender: F : 1965 Exam Date: 10/25/2024 09:27 Ordering Phys: Robson Ruth DO Technologist: [employer] Exam Location: [facility] [place] Indication: Left leg pain HISTORY: Left lower extremity pain. PROCEDURES: Venous duplex imaging was performed in only the left lower extremity. The following venous structures were evaluated: common femoral vein, profunda vein, proximal portion of the greater saphenous vein, superficial femoral vein, and the popliteal vein. In addition, the posterior tibial and peroneal trunk were evaluated. FINDINGS: Normal 2-D Doppler and augmentation and compressibility throughout the lower extremity venous structures. Additional imaging through the proximal calf veins also reveals no thrombus. Limited evaluation of the greater saphenous vein is patent with no thrombus. CONCLUSIONS No DVT left lower extremity. Dr. Louann Lawson DO (Electronically Signed) Final Date: 25 October 2024 10:23 S
[2024-10-25 09:59] VITALS: BP 188/135; PULSE 56; TEMP 36.6; O2SAT 98
--- NOTE | 2024-10-25 11:21 | W.ED.EXTPRO ---
HPI - Extremity Problem General: Chief complaint: Extremity Problem,Nontraumatic Stated complaint: lt leg swollen Time Seen by Provider: 10/25/24 08:51 Source: patient Mode of arrival: ambulatory Limitations: no limitations History of Present Illness: Patient is a very pleasant 59-year-old female presenting to the ED with complaints of left calf pain. Her past medical history is significant for hypertension and hypothyroidism. Patient states this pain started on Thursday and described as burning and stabbing in her left calf. She states this does not radiate elsewhere. Patient states she takes hydrocodone once a day for her back pain and has had no relief with her calf pain while taking it. Patient states bearing weight on her left leg and walking makes the pain worse. She denies any immobilization this past week or history of DVTs. No recent surgeries. Known osteoarthritis to the left knee and does receive injections from our orthopedic department. She has not noticed any erythema or swelling to the leg. MD Complaint: extremity pain Onset (ago): day(s) Pain Consistency: constant Location: left and lower extremity Quality: burning and stabbing Radiation: none Relieving factors: nothing Exacerbating factors: weight bearing, walking, exertion and palpation Associated symptoms: Reports short of breath; Deny chest pain, fever(s) or rash Related Data Home Medications ?Medication ?Instructions ?Recorded ?Confirmed omeprazole 40 mg capsule,delayed 40 mg PO DAILY PRN Acid Reflux 09/10/23 10/25/24 release levothyroxine 100 mcg tablet 100 mcg PO QAM 10/25/24 10/25/24 metoprolol tartrate 25 mg tablet 12.5 mg PO BID 10/25/24 10/25/24 Previous Rx's ?Medication ?Instructions ?Recorded hydrocodone 5 mg-acetaminophen 325 1 tab PO TID PRN pain 7 days #21 01/14/ mg tablet tabs Hinged Knee Brace, Left #1 ea 02/16/24 Allergies Allergy/AdvReac Type Severity Reaction Status Date / Time No Known Allergies Allergy Verified 10/25/24 10:03 Review of Systems Const: Denies: fever(s), chills or body aches Card: Denies: chest pain, palpitations, irregular heart rhythm, swelling of feet/ankles or lightheadedness Resp: Denies: dyspnea, productive cough, non-productive cough or pain on inspiration Musc: Reports: extremity pain (L calf); Denies: neck pain, back pain, extremity swelling, joint pain, joint swelling, joint redness or joint warmth Skin/Breast: Denies: rash or erythema Neuro: Denies: headache(s), numbness in extremities, weakness in extremities, sensory changes or difficulty walking PFSH ED PFSH: Medical History Diverticulitis Hypothyroid Anxiety Hx of colonic polyp benign Surgical History H/O prior ablation treatment (~2007) endometrial--- did not work H/O hernia repair umbilical/abdominal--- several repairs Hx of ectopic (~1988) required removal History of hysterectomy (~2007) TVH,anterior repair performed at [facility] [place]-- Andres Peters Hx of appendectomy Hx of rotator cuff surgery (~12/2019) left Family History Mother Diabetes Hypertension Thyroid disease Father Diabetes Heart disease Stroke Grandfather Breast cancer Maternal Denies family history of Colon cancer Ovarian cancer Hypercholesteremia Bleeding disorder Uterine cancer Social History Smoking and tobacco/nicotine status: never used tobacco/nicotine Alcohol intake: never Substance/Drug Use: never Additional social history: - Tobacco use: current everyday smoker-- smokes 10 cigarettes per day Alcohol use: Occasional/socially Drug use: Marijuana-- quit in 20's Physical Exam Const: COMMON NORMALS: no acute distress, average body habitus, patient oriented x3, no limitations, healthy appearing, alert and well nourished GENERAL APPEARANCE: cooperative and comfortable ORIENTATION/CONSCIOUSNESS: Yes awake, Yes oriented to person, Yes oriented to place, Yes oriented to time and Yes confused Resp: COMMON NORMALS: normal respiratory effort and clear to auscultation bilaterally AUSCULTATION: clear to auscultation bilaterally Cardio: COMMON NORMALS: regular rate and regular rhythm RATE: regular rate RHYTHM: regular rhythm Extremity: COMMON NORMALS: normal to inspection, full ROM, capillary refill normal, no joint enlargement, no clubbing, cyanosis or edema and no pedal edema GENERAL: Yes normal exam except as noted and Yes calf tenderness (left) LEFT LOWER EXTREMITY: Yes lower leg (L calf pain with palpation; no edema; no erythema) Left lower leg: Yes inspection (normal gross inspection), Yes palpation and Yes neurovascular exam (normal) OTHER: TTP L posterior knee and L calf; no edema or color/temp changes to extremity noted; sensation normal; DP/PT pulses normal; no large Ulloa's appreciated; no palpable cord Neuro: COMMON NORMALS: patient oriented x3, moves all extremities, no focal motor deficits and no sensory deficits noted SENSORIUM/ORIENTATION: Yes alert, Yes oriented to person, Yes oriented to place and Yes oriented to time Course Vital Signs: Vital signs: Vital Signs Temperature 97.9 F 10/25/24 09:59 Pulse Rate 56 L 10/25/24 09:59 Blood Pressure 188/135 10/25/24 09:59 Pulse Oximetry 98 10/25/24 09:59 Oxygen Delivery Me thod Room Air 10/25/24 09:59 MDM - Extremity (Nontraumatic) Medical Decision Making US negative for DVT. Extremity NV intact. She will be allowed discharge from an emergency standpoint. Recommend follow-up with primary care. Medical Records I reviewed the patient's medical records. All radiology interpretation(s) finalized by discharge Discharge Plan Discharge Patient Disposition: Home Clinical Impression: Pain of left calf Condition: Stable Prescriptions: No Action hydrocodone-acetaminophen 5-325 mg tablet 1 tab PO TID PRN (Reason: pain) 7 Days Qty: 21 0RF omeprazole 40 mg capsule,delayed release(DR/EC) 40 mg PO DAILY PRN (Reason: Acid Reflux) (DME) Hinged Knee Brace, Left See Rx Instructions .Route .MEDSUPPLY Qty: 1 0RF Rx Instructions: As directed levothyroxine 100 mcg tablet 100 mcg PO QAM metoprolol tartrate 25 mg tablet 12.5 mg PO BID Discharge Orders: Discharge ED (Routine); Ordered 10/25/24 Ordered By: Karin Lovelace Referrals: Aretha Araiza FNP [Primary Care Provider] - Activity Restrictions/Additional Instructions: As we discussed, your ultrasound of your left lower extremity did not show any blood clot/DVT. I would like you to follow-up with your primary care provider for further evaluation of your left calf pain. Print Language: Cypriot Coding Level of Care Code ED Plumber Maintenance for Bee Kennedy
[2024-10-25 11:49] VITALS: BP 160/98; PULSE 82; RESP 16; O2SAT 96
== END 2024-10-25 11:50 | disposition home or self-care (01) ==
PROVIDERS: Emergency Provider Physician Assistant; PCP Nurse Practitioner Family
DX: M79.605 Pain in left leg (principal)
CPT/HCPCS: 93971; 99284

== ENCOUNTER 2025-01-16 08:47 | Emergency (ER) | payer MEDICARE, SELFPAY ==
--- NOTE | 2025-01-16 08:56 | XRR_ITS ---
PROCEDURE INFORMATION: Exam: XR Chest Exam date and time: 01/16/2025 9:05 AM Age: 59 years old Clinical indication: Other: N/v weakness; Additional info: Weakness nausea vomiting TECHNIQUE: Imaging protocol: Radiologic exam of the chest. Views: 1 view. COMPARISON: CR XR chest 2V* [id number] 12/23/2022 11:36 AM FINDINGS: Lungs: Unremarkable. No consolidation. Pleural spaces: Unremarkable. No pleural effusion. No pneumothorax. Heart/Mediastinum: Unremarkable. No cardiomegaly. Bones/joints: Unremarkable. XR/XR chest 1V portable [id number] IMPRESSION: No acute findings.
--- NOTE | 2025-01-16 08:56 | ECG_ITS ---
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
[2025-01-16 08:57] VITALS: BP 130/89; PULSE 87; RESP 18; TEMP 36.7; O2SAT 95; BMI 32.1
--- NOTE | 2025-01-16 09:09 | ED_ITS ---
HPI - General Adult 2 General: Chief complaint: Nausea/Vomiting/Diarrhea Stated complaint: weak,n,v,hurt all over Time Seen by Provider: 01/16/25 08:58 Source: patient Mode of arrival: ambulatory Limitations: no limitations History of Present Illness: Patient is a very nice 59-year-old female here for concerns of fever, body aches, generalized weakness, nausea and vomiting. Symptoms present over the past 3 days or so. She is not having any changes in bowel movements or diarrhea. No urinary symptoms. Fever as high as 101. She has been afebrile today. Patient states she hurts from her head all the way to her toes . States she cannot seem to get comfortable when she lies down. Patient states she is not able to stand up for long periods of time due to the generalized weakness. She does not complain of a headache or neck pain. No severe abdominal pain. Has not had any abnormal rashes-has had some tick bites recently. Vitals stable upon arrival. Has had some urinary urgency/frequency. Onset (ago): day(s) Severity: moderate Relieving factors: none Exacerbating factors: none Associated symptoms: Reports malaise, nausea and vomiting; Deny chest pain, confusion, dyspnea, headache(s), rash, palpitations or syncope Treatments prior to arrival: none Related Data Home Medications ?Medication ?Instructions ?Recorded ?Confirmed omeprazole 40 mg capsule,delayed 40 mg PO DAILY PRN Ac id Reflux 09/10/23 01/16/25 release levothyroxine 100 mcg tablet 100 mcg PO QAM 10/25/24 0 01/16/25 metoprolol tartrate 25 mg tablet 12.5 mg PO BID 01/16/25 meloxicam 15 mg tablet 15 mg PO DAILY 01/16/2512/23 Previous Rx's ?Medication ?Instructions ?Recorded hydrocodone 5 mg-acetaminophen 325 1 tab PO TID PRN pa in 7 days #21 01/14/23 mg tablet tabs Hinged Knee Brace, Left #1 ea 02/16/24 nitrofurantoin 100 mg PO BID 7 days #14 cap s 01/16/25 monohydrate/macrocrystals 100 mg capsule (Macrobid) Allergies Allergy/AdvReac Type Severity Reaction Status Date / Time No Known Allergies Allergy Verified 10/25/24 10:03 Review of Systems 2 Const: Reports: fever(s) (101), chills, body aches, fatigue and malaise Eyes: Denies: change in vision, blurry vision, photophobia, floaters or seeing flashes Card: Denies: chest pain, palpitations, irregular heart rhythm, edema, lightheadedness, syncope, pre-syncope or dyspnea on exertion Resp: Denies: dyspnea, productive cough or pain on inspiration GI: Reports: nausea and vomiting; Denies: abdominal pain, heartburn, diarrhea or change in bowel habits : Reports: urinary frequency and urinary urgency; Denies: flank pain, difficulty voiding, dysuria, dribbling, vaginal bleeding or vaginal discharge Musc: Denies: neck pain, back pain, extremity pain, extremity swelling or joint pain Skin/Breast: Denies: rash Neuro: Reports: other (generalized weakness); Denies: headache(s), numbness in extremities, weakness in extremities, sensory changes, lack of coordination or confusion PFSH ED 2 PFSH: Medical History Diverticulitis Hypothyroid Anxiety Hx of colonic polyp benign Surgical History H/O prior ablation treatment (~2007) endometrial--- did not work H/O hernia repair umbilical/abdominal--- several repairs Hx of ectopic (~1988) required removal History of hysterectomy (~2007) TVH,anterior repair performed at [facility] [place]-- Andres Peters Hx of appendectomy Hx of rotator cuff surgery (~12/2019) left Family History Mother Diabetes Hypertension Thyroid disease Father Diabetes Heart disease Stroke Grandfather Breast cancer Maternal Denies family history of Colon cancer Ovarian cancer Hypercholesteremia Bleeding disorder Uterine cancer Social History Smoking and tobacco/nicotine status: never used tobacco/nicotine Alcohol intake: never Substance/Drug Use: never Additional social history: - Tobacco use: current everyday smoker-- smokes 10 cigarettes per day Alcohol use: Occasional/socially Drug use: Marijuana-- quit in 20's Physical Exam 2 Const: COMMON NORMALS: no acute distress, average body habitus, patient oriented x3, no limitations, healthy appearing, alert and well nourished G ENERAL APPEARANCE: cooperative ORIENTATION/CONSCIOUSNESS: Yes awake, Yes oriented to person, Yes oriented to place and Yes oriented to time HENMT: COMMON NORMALS: normocephalic and atraumatic HEAD & SCALP: normal to inspection, normocephalic and atraumatic FACE & SINUS: normal facial exam and face symmetric Eye: GENERAL EYE: appearance normal, both eyes and all related structures Neck/C-Spine: COMMON NORMALS: full ROM, no lymphadenopathy, supple and no meningeal signs Chest: COMMONS NORMALS: normal inspection of the chest Resp: COMMON NORMALS: normal respiratory effort and clear to auscultation bilaterally AUSCULTATION: clear to auscultation bilaterally Cardio: COMMON NORMALS: regular rate and regular rhythm RATE: regular rate RHYTHM: regular rhythm GI: COMMON NORMALS: Normal to inspection, nondistended, normoactive bowel sounds present, Soft to palpation, non-tender, No hepatosplenomegaly present and no masses PALPATION: Yes Soft to palpation and Yes No hepatosplenomegaly present : COMMON NORMALS: Yes no CVA tenderness BLADDER/KIDNEY EXAM: Yes no CVA tenderness Back/Pelvis: COMMON NORMALS: no CVA tenderness and thoracic and lumbar spine normal to inspection Extremity: COMMON NORMALS: normal to inspection GENERAL: Yes normal exam except as noted Neuro: LEEANN COMA SCALE: document GCS findings Leeann coma scale eye opening: Spontaneous Leeann coma scale verbal response: Orientated Leeann coma scale motor response: [place] commands [place] coma scale total score: 15 COMMON NORMALS: patient oriented x3, moves all extremities, no focal motor deficits and no sensory deficits noted SENSORIUM/ORIENTATION: Yes alert, Yes oriented to person, Yes oriented to place and Yes oriented to time MENINGEAL SIGNS: Yes no meningeal signs Skin: COMMON NORMALS: no rashes or lesions noted GENERAL SKIN EXAM: no rashes or lesions noted Course 2 Vital Signs: Vital signs: Vital Signs Temperature 98.1 F 01/16/25 08:57 Pulse Rate 87 01/16/25 08:57 Respiratory Rate 18 01/16/25 08:57 Blood Pressure 130/89 01/16/25 08:57 Pulse Oximetry 95 01/16/25 08:57 Oxygen Delivery Me thod Room Air 01/16/25 08:57 [facility] - General Adult Medical Decision Making Patient clinically appears in no acute distress. She is not complaining of any severe abdominal pain or flank pain. Her vital signs are completely normal. Blood work overall is unremarkable. Her white count is normal. H&H are stable. Her chemistry is unremarkable. TSH is normal. UA with a cloudy appearance with 3+ blood and 6-10 WBCs. This was contaminated specimen. She is status post hysterectomy. She is not having any pelvic pain. She does complain of urinary frequency and urgency. At this time I do not have any other reason to explain her symptoms. She will be placed on antibiotics for a possible hemorrhagic cystitis. Recommend she follow-up with primary care later this week for reevaluation. Medical Records I reviewed the patient's medical records. Lab Data I reviewed the patient's lab results. 01/16/25 09:13 01/16/25 09:13 Radiology Impressions Chest X-Ray 01/16/25 08:56 IMPRESSION: No acute findings. Laboratory Results WBC 5.37 10^3/uL (3.29-11.43) 01/16/25 09:13 RBC 4.53 10^6/uL (3.85-5.65) 01/16/25 09:13 Hgb 14.30 g/dL (11.27-16.99) 01/16/25 09:13 Hct 43.9 % (36-47) 01/16/25 09:13 MCV 96.9 fl (85-98) 01/16/25 09:13 MCH 31.6 pg (27-33) 01/16/25 09:13 MCHC 32.6 g/dL (30-55) 01/16/25 09:13 RDW 12.9 % (12.1-15.1) 01/16/25 09:13 Plt Count 157 10^3/cmm (157-399) 01/16/25 09:13 MPV 8.9 fL (7.4-10.4) 01/16/25 09:13 Neut % (Auto) 67.4 % 01/16/25 09:13 Lymph % (Auto) 20.7 % 01/16/25 09:13 [place] % (Auto) 10.2 % 01/16/25 09:13 Eos % (Auto) 0.2 % 01/16/25 09:13 Baso % (Auto) 0.6 % 01/16/25 09:13 Neut # (Auto) 3.62 10^3/uL (1.8-7.7) 01/16/25 09:13 Lymph # (Auto) 1.1 10^3/uL (0.8-4.8) 01/16/25 09:13 [place] # (Auto) 0.6 10^3/uL (0.2-0.9) 01/16/25 09:13 Eos # (Auto) 0.0 10^3/uL (0.0-0.8) 01/16/25 09:13 Baso # (Auto) 0.0 10^3/uL (0.0-0.1) 01/16/25 09:13 Nucleated RBC % (auto) 0 % 01/16/25 09:13 Nucleated RBCs # 0.0 /100WBC 01/16/25 09:13 Sodium 136 mmol/L (136-145) 01/16/25 09:13 Potassium 3.9 mmol/L (3.5-5.1) 01/16/25 09:13 Chloride 98 mmol/L (98-107) 01/16/25 09:13 Carbon Dioxide 23 mmol/L (22-29) 01/16/25 09:13 Anion Gap 18.9 (5-19) 01/16/25 09:13 BUN 12 mg/dL (6-20) 01/16/25 09:13 Creatinine 0.9 mg/dL (0.5-0.9) 01/16/25 09:13 GFR Calculation 64.1 mL/min (90-130) L 01/16/25 09:13 Glucose 106 mg/dL (65-115) 01/16/25 09:13 Calculated Osmolality 282 mOsm/kg (285-295) L 01/16/25 09:13 Calcium 9.2 mg/dL (8.5-10.5) 01/16/25 09:13 Total Bilirubin 0.4 mg/dL (0.15-1.2) 01/16/25 09:13 AST 32 U/L (0-32) 01/16/25 09:13 ALT 26 U/L (0-33) 01/16/25 09:13 Alkaline Phosphatase 87 U/L (35-105) 01/16/25 09:13 Creatine Kinase 94 U/L (26-192) 01/16/25 09:13 Total Protein 7.4 g/dL (6.6-8.7) 01/16/25 09:13 Albumin 4.0 g/dL (3.5-5.2) 01/16/25 09:13 Globulin 3.4 g/dL (1.3-4.6) 01/16/25 09:13 Lipase 17 U/L (13-60) 01/16/25 09:13 TSH 1.28 uIU/mL (0.27-4.20) 01/16/25 09:13 Urine Color Yellow (Yellow) 01/16/25 10:00 Urine Appearance Cloudy (CLEAR) A 01/16/25 10:00 Urine pH 6.5 (5-7) 01/16/25 10:00 Ur Specific [place] 1.014 (1.005-1.030) 01/16/25 10:00 Urine Protein 1+ (Negative) A 01/16/25 10:00 Urine Glucose (UA) Negative (Normal) 01/16/25 10:00 Urine Ketones 1+ (Negative) H 01/16/25 10:00 Urine Blood 3+ (Negative) A 01/16/25 10:00 Urine Nitrate Negative (Negative) 01/16/25 10:00 Urine Bilirubin Negative (Negative) 01/16/25 10:00 Urine Urobilinogen 1.0 mg/dL (Negative) 01/16/25 10:00 Ur Leukocyte Esterase Negative (Negative) 01/16/25 10:00 Urine RBC 21-50 /hpf (0-2) H 01/16/25 10:00 Urine WBC 6-10 /hpf (0-5) 01/16/25 10:00 Ur Squamous Epith Cells 21-50 /hpf (0-5) H 01/16/25 10:00 Amorphous Sediment Not Reportable 01/16/25 10:00 Urine Bacteria None seen /hpf (NONE) 01/16/25 10:00 Hyaline Casts 2.87 /lpf 01/16/25 10:00 All radiology interpretation(s) finalized by discharge Discharge Plan Discharge Patient Disposition: Home Clinical Impression: Acute hemorrhagic cystitis Condition: Stable Prescriptions: New nitrofurantoin monohyd/m-cryst [Macrobid] 100 mg capsule 100 mg PO BID 7 Days Qty: 14 0RF Rx Instructions: must administer with a meal/food No Action hydrocodone-acetaminophen 5-325 mg tablet 1 tab PO TID PRN (Reason: pain) 7 Days Qty: 21 0RF omeprazole 40 mg capsule,delayed release(DR/EC) 40 mg PO DAILY PRN (Reason: Acid Reflux) (DME) Hinged Knee Brace, Left See Rx Instructions .Route .MEDSUPPLY Qty: 1 0RF Rx Instructions: As directed levothyroxine 100 mcg tablet 100 mcg PO QAM metoprolol tartrate 25 mg tablet 12.5 mg PO BID meloxicam 15 mg tablet 15 mg PO DAILY Discharge Orders: Discharge ED (Routine); Ordered 01/16/25 Ordered By: Karin Lovelace Referrals: Aretha Araiza FNP [Primary Care Provider, Unknown] Patient Instructions: Hemorrhagic Cystitis Activity Restrictions/Additional Instructions: As we discussed, we will place you on antibiotics for possible bladder infection. Please follow-up with primary care later this week for re- evaluation. You may return to the emergency department at anytime for any further concerns you may have. If blood in your urine does not clear-they may refer you to urology for possible cystoscopy. Print Language: Chinese Coding Level of Care Code ED [place] Grinder Operator for Bee Kennedy
[2025-01-16 09:24] LABS: Basophils % 0.6 %; Eosinophils % 0.2 %; Hematocrit 43.9 % (36-47); Lymphocytes # 1.1 10^3/uL (0.8-4.8); Lymphocytes % 20.7 %; Mean Corpuscular HGB Conc 32.6 g/dL (30-55); Mean Corpuscular Hemoglobin 31.6 pg (27-33); Mean Corpuscular Volume 96.9 fl (85-98); Mean Platelet Volume 8.9 fL (7.4-10.4); Monocytes # 0.6 10^3/uL (0.2-0.9); Monocytes % 10.2 %; Neutrophils # 3.62 10^3/uL (1.8-7.7); Neutrophils % 67.4 %; Nucleated Red Blood Cells % 0 %; Platelet Count 157 10^3/cmm (157-399); Red Blood Count 4.53 10^6/uL (3.85-5.65); Red Cell Distribution Width 12.9 % (12.1-15.1); White Blood Count 5.37 10^3/uL (3.29-11.43)
[2025-01-16 09:34] VITALS: BP 145/79; PULSE 76; O2SAT 92
[2025-01-16 09:47] LABS: Alanine Aminotransferase 26 U/L (0-33); Alkaline Phosphatase 87 U/L (35-105); Anion Gap 18.9 (5-19); Aspartate Amino Transferase 32 U/L (0-32); Blood Urea Nitrogen 12 mg/dL (6-20); Calcium 9.2 mg/dL (8.5-10.5); Carbon Dioxide 23 mmol/L (22-29); Chloride 98 mmol/L (98-107); Creatine Phosphokinase 94 U/L (26-192); Creatinine Clr Calc Pharmacy 63.2447; Globulin 3.4 g/dL (1.3-4.6); Glomerular Filtration Rate 64.1 mL/min (90-130); Glucose 106 mg/dL (65-115); Lipase 17 U/L (13-60); Osmolality Calculated 282 mOsm/kg (285-295); Potassium 3.9 mmol/L (3.5-5.1); Sodium 136 mmol/L (136-145); Total Bilirubin 0.4 mg/dL (0.15-1.2); Total Protein 7.4 g/dL (6.6-8.7)
[2025-01-16] MEDS: sodium chloride 0.9% 1,000 ML 999 ML IV (10:12)
[2025-01-16 10:20] LABS: Bilirubin Urine Negative (Negative); Blood Urine 3+ (Negative); Glucose Urine UA Negative (Normal); Ketones Urine 1+ (Negative); Leukocyte Esterase Urine Negative (Negative); Nitrate Urine Negative (Negative); Protein Urine 1+ (Negative); Specific Gravity, Urine 1.014 (1.005-1.030); Urine Appearance Cloudy (CLEAR); Urine Color Yellow (Yellow); pH Urine 6.5 (5-7)
[2025-01-16 10:25] LABS: Add Urine Microscopic? YES; Bacteria Urine None Seen /hpf; Hyaline Casts Urine 2.87 /lpf; RBC Urine 21-50 /hpf (0-2); Squamous Epithelial Cell Urine 21-50 /hpf (0-5)
[2025-01-16 10:33] LABS: Thyroid Stimulating Hormone 1.28 uIU/mL (0.27-4.20)
[2025-01-16 10:44] LABS: Add Urine Culture? Yes
[2025-01-16 11:00] VITALS: BP 134/75; PULSE 69; O2SAT 97
[2025-01-16 11:41] VITALS: BP 116/81; PULSE 72; O2SAT 97
[2025-01-18 08:20] LABS: Lyme AB Screen <0.90 index
[2025-01-20 21:01] LABS: RMSF IGG NOT DETECTED; RMSF IGM NOT DETECTED
== END 2025-01-16 11:41 | disposition home or self-care (01) ==
PROVIDERS: Family Medicine; Emergency Provider Physician Assistant; PCP Nurse Practitioner Family
DX: N30.00 Acute cystitis without hematuria (principal)
CPT/HCPCS: 36415; 71045; 80053; 81001; 82550; 83690; 84443; 85025; 86618; 86666; 86757; 87086; 93005; 99285; J7030

== ENCOUNTER → 2025-03-14 14:44 | Outpatient (BNVA) | payer MEDICARE, SELFPAY | PROVIDERS: PCP Nurse Practitioner Family; Visit Provider Internal Medicine | DX: R00.2 Palpitations (principal); R06.09 Other forms of dyspnea; Z87.891 Personal history of nicotine dependence | CPT/HCPCS: 99213; 99214 ==

== ENCOUNTER 2025-06-12 09:03 | Outpatient (CLI) | payer MEDICARE, OTHER, SELFPAY ==
--- NOTE | 2025-06-12 09:09 | MR_ITS ---
WS: [id number] MRI LUMBAR SPINE WITH AND WITHOUT CONTRAST HISTORY: OTHER SPONDYLOSIS, LUMBOSACRAL REGION COMPARISON: 10/07/2022 TECHNIQUE: Sagittal and axial multisequence imaging is submitted. Sagittal and axial T1 fat sat sequences post-MultiHance 16 cc IV. Mild degenerative disc disease and and spondylosis in the mid cervical spine. L5 anterolisthesis by 7 mm with minimal change since 10/07/2022. There is a small amount of marrow edema in the LEFT L4 and L5 posterior elements and in the RIGHT L5 posterior elements. Facet joint arthropathy but no definite pars defects identified. No pars defects were noted on a CT from 03/16/2024. Mild degenerative disc disease and narrowing at L5-S1. There is additional edema seen best on the sagittal STIR sequence involving the RIGHT sacrum. Conus terminates normally at L1-2 disc level. L1-L2: Bilateral facet arthritis. No stenosis. L2-L3: Bilateral moderate facet joint arthropathy with mild encroachment upon the posterior lateral thecal sac. Very mild narrowing of the RIGHT subarticular recess. L3-L4: Mild disc bulging with moderate ligamentum flavum and facet arthritis. Very mild subarticular recess narrowing. L4-L5: Diffuse annular disc bulging with marked ligamentum flavum and facet arthritis. Moderate central and subarticular recess stenosis. There is mild contact on the traversing L5 nerve roots similar to the prior study. Mild LEFT foraminal stenosis. No significant stenosis on the RIGHT. L5-S1: Diffuse annular disc bulging with osteophytic ridging. Severe ligamentum flavum and facet arthritis. Complete effacement of CSF. Severe central and subarticular recess and bilateral foraminal stenosis. Slightly greater foraminal stenosis on the LEFT. There is disc contacting the S1 and L5 nerve roots. Mild progression since the prior study. Reidentified is abnormal signal in the RIGHT sacrum and ilium from chronic sacroiliitis. There is small amount of edema suggesting there may be a superimposed acute process. No discitis or osteomyelitis identified. Facet joint enhancement bilaterally at L4-5 and L5-S1. Slightly greatest enhancement on the LEFT at the L4-5 level and extending into the synovium and facet joint. There is also mild RIGHT sacral enhancement. MR/MR lumbar spine wo/w con [id number] IMPRESSION: 1. Grade 1 anterolisthesis of L5 by 7 mm. Very minimal progression since the p rior study. 2. Severe central, subarticular recess and bilateral foraminal stenosis at L5- S1. Greater foraminal stenosis on the LEFT. There is contact by disc and osteop hyte and facet disease on the L5 and S1 nerve roots. 3. Minimal subarticular recess narrowing at L3-4. 4. Moderate central, subarticular recess and mild LEFT foraminal stenosis at L 4-5. Marked facet joint arthritis and ligamentum flavum hypertrophy. 5. Chronic RIGHT sacroiliitis. Superimposed acute sacroiliitis suspected as th ere is enhancement and edema within the RIGHT sacrum. 6. Acute synovitis at L4-5 and L5-S1. There is enhancement involving the facet joints, greatest at L4-5 on the LEFT.
[2025-06-12] MEDS: gadobenate dimeglumine 20 mL vial IV (10:07)
== END 2025-06-12 09:04 | disposition home or self-care (01) ==
LOC: RAD 09:03
PROVIDERS: PCP Nurse Practitioner Family; Visit Provider Nurse Practitioner Family
DX: M47.897 Other spondylosis, lumbosacral region (principal); M48.061 Spinal stenosis, lumbar region without neurogenic claudication; M46.1 Sacroiliitis, not elsewhere classified; M65.88 Other synovitis and tenosynovitis, other site; M47.816 Spondylosis without myelopathy or radiculopathy, lumbar region
CPT/HCPCS: 72158